=== PATIENT | male | born 2000 | race African-American/Black ===

== ENCOUNTER 2023-04-26 20:03 | Emergency (ER) | payer OTHER, SELFPAY ==
[2023-04-26 20:22] VITALS: BP 94/49; PULSE 58; RESP 18; TEMP 36; O2SAT 98; BMI 21.5
--- NOTE | 2023-04-26 20:22 | ED_ITS ---
HPI - General Adult General Chief complaint: General Medical Stated complaint: Hemorrhoid? Time Seen by Provider: 04/26/23 21:44 Related Data Previous Rx's Medication Instructions Recorded hydrocortisone acetate 25 mg 25 mg [place] BID #12 ea 04/26/23 rectal suppository (Anusol-HC) Allergies Allergy/AdvReac Type Severity Reaction Status Date / Time No Known Allergies Allergy Verified 04/26/23 20:22 [facility] Social History Social History Advance Directives: No Advance Directives Information Provided: No Physical Exam ED Vital Signs: Vital Signs - 24 hr 04/26/23 20:22 Temperature 96.8 F Pulse Rate 58 Respiratory Rate 18 Blood Pressure 94/49 L Pulse Oximetry 98 Oxygen Delivery Method Room Air BMI result Body Mass Index 21.5 Course Course Course Narrative: This is a rapid medical exam: Additional HPI, ROS, PE not included below will be deferred to primary provider. Patient is a 22-year-old male presenting to the emergency department with complaint of rectal pain related to a hemorrhoid for the past week-10 days, was seen at urgent care. He was prescribed a stool sof tner as well as suppositories. Has been doing Sitz baths as well. States initially had one, now feels he has two and feels they are rubbing against each other. Denies any blood in stool. Denies straining to have a bowel movement. Rates pain at 10/10. Area not visualized in triage due to privacy concerns. Medications Administered Discontinued Medications Generic Name Dose Route Start Last Admin Trade Name Freq PRN Reason Stop Dose Admin Lidocaine HCl 2 ml 04/26/23 21:55 04/26/23 22:07 Lidocaine Hcl 1 % Mpf 2 Ml Vial INFILTRATI 04/26/23 21:56 2 ml ONCE ONE Administration Lidocaine HCl 2 ml 04/26/23 22:28 04/26/23 22:08 Lidocaine Hcl 1 % Mpf 2 Ml Vial INFILTRATI 04/26/23 22:29 2 ml ONCE ONE Administration Discharge Plan Discharge Clinical Impression: External hemorrhoid, thrombosed Patient Disposition: Home, Self-Care Instructions: Hemorrhoids (ED) Additional Instructions: avoid straining/ constipation Anusol suppository twice daily for 5 days follow with PCP/surgeon Prescriptions: New hydrocortisone acetate [Anusol-HC] 25 mg suppository 25 mg RI BID Qty: 12 0RF Referrals: Jayce Yadav MD [Physician] - 2 weeks Stand Alone Forms: Work/School Release Interventions: ED Discharge Assessment Last Done: 04/26/23 22:36 Discharge Date/Time: 04/26/23 22:38
[2023-04-26] MEDS: Lidocaine HCl 1 % MPF 2 ML VIAL INFILTRATI ×2 (22:07→22:08)
--- NOTE | 2023-04-26 22:42 | ED_ITS ---
HPI - General Adult General Chief complaint: General Medical Stated complaint: Hemorrhoid? Time Seen by Provider: 04/26/23 21:44 Source: patient Mode of arrival: ambulatory Limitations: no limitations History of Present Illness HPI narrative: previous with hemorrhoids for last 1 week getting worse with increased pain for last few days no bleeding no history of significant constipation Related Data Previous Rx's Medication Instructions Recorded hydrocortisone acetate 25 mg 25 mg [place] BID #12 ea 04/26/23 rectal suppository (Anusol-HC) Allergies Allergy/AdvReac Type Severity Reaction Status Date / Time No Known Allergies Allergy Verified 04/26/23 20:22 Review of Systems Review of Systems: Yes all other systems are reviewed and are negative [facility] Social History Social History Advance Directives: No Advance Directives Information Provided: No Physical Exam ED Vital Signs: Vital Signs - 24 hr 04/26/23 20:22 Temperature 96.8 F Pulse Rate 58 Respiratory Rate 18 Blood Pressure 94/49 L Pulse Oximetry 98 Oxygen Delivery Method Room Air BMI result Body Mass Index 21.5 Appearance: Alert. Oriented X3. No acute distress. CVS: Normal heart rate and rhythm. Pulses normal. Respiratory: No respiratory distress. Equal air entry bilateral, Abdomen: Soft and nontender. Bowel sounds are present, rectum: 2 small thrombosed hemorrhoid tender to touch Skin: Skin warm and dry. Normal skin color. Normal skin turgor. Neuro: Oriented X 3. No motor deficit. Medications Administered Discontinued Medications Generic Name Dose Route Start Last Admin Trade Name Freq PRN Reason Stop Dose Admin Lidocaine HCl 2 ml 04/26/23 21:55 04/26/23 22:07 Lidocaine Hcl 1 % Mpf 2 Ml Vial INFILTRATI 04/26/23 21:56 2 ml ONCE ONE Administration Lidocaine HCl 2 ml 04/26/23 22:28 04/26/23 22:08 Lidocaine Hcl 1 % Mpf 2 Ml Vial INFILTRATI 04/26/23 22:29 2 ml ONCE ONE Administration Procedures Abscess I/D Site: jose de jesus-rectal ( hemorrhoid) Local Anesthetic: lidocaine 1% Amount of anesthesia used (mL): 4 Technique: incised with blade Medical Decision Making Medical Decision Making MDM Narrative: patient with 2 small thrombosed hemorrhoid which were incised blood clots removed patient felt much better discharged patient home Discharge Plan Discharge Clinical Impression: External hemorrhoid, thrombosed Patient Disposition: Home, Self-Care Instructions: Hemorrhoids (ED) Additional Instructions: avoid straining/ constipation Anusol suppository twice daily for 5 days follow with PCP/surgeon Prescriptions: New hydrocortisone acetate [Anusol-HC] 25 mg suppository 25 mg [place] BID Qty: 12 0RF Referrals: Jayce Yadav MD [Physician] - 2 weeks Stand Alone Forms: Work/School Release Interventions: ED Discharge Assessment Last Done: 04/26/23 22:36
== END 2023-04-26 22:38 | disposition home or self-care (01) ==
PROVIDERS: Emergency Provider Internal Medicine
DX: K64.4 Residual hemorrhoidal skin tags (principal)
CPT/HCPCS: 99282; 99283